=== PATIENT | female | born 1975 | race Caucasian/White ===

== ENCOUNTER 2016-09-10 09:07 | Outpatient (CLI) | payer OTHER ==
--- NOTE | 2016-09-10 10:20 | DIAGNOSTIC IMAGING REPORT ---
PROCEDURE: CT ABDOMEN/PELVIS W/O CONTRAST INDICATION: FREQUENCEY URIANARY TECHNIQUE: Noncontrast axial images were obtained of the entire abdomen and pelvis with sagittal and coronal reformations. COMPARISON: CT abdomen/pelvis 12/13/2014. FINDINGS: ABDOMEN: Lung base are clear. Heart size is normal. Cholecystectomy. Calcified hepatic granuloma. Pancreas, spleen, adrenal glands and right kidney are normal. 1 mm nonobstructing left renal lower pole calculus. Minor atherosclerosis of the aorta. Nonspecific bowel gas pattern. PELVIS: Normal appendix. Single sigmoid diverticulum. Hysterectomy. Normal bladder and adnexa. No pelvic mass, inflammatory changes or free fluid. Mild degenerative changes of the spine. IMPRESSION: 1. 1 mm nonobstructing left renal lower pole calculus. 2. Cholecystectomy and hysterectomy 3. Single sigmoid diverticulum All CT scans at this facility use dose modulation, iterative reconstruction, and/or weight-based dosing when appropriate to reduce radiation dose to as low as reasonably achievable.
== END 2016-09-10 23:00 ==
LOC: CT SRH 09:07
DX: N20.0 Calculus of kidney (principal); K57.30 Diverticulosis of large intestine without perforation or abscess without bleeding